=== PATIENT | male | born 1950 | race Caucasian/White ===

== ENCOUNTER 2018-12-14 09:15 | Outpatient (CLI) | payer BC ==
--- NOTE | 2018-12-14 16:23 | NM ---
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 TECHNIQUE: A DaTscan with axial tomographic images of the brain was obtained 3 hours following the intravenous a dministration of 4.5 mCi Iodine-123 Ioflupane. The patient was pretreated with 130 mg of potassium io dide orally 1 hour prior to the injection. FINDINGS: There is mild loss of tracer uptake in small areas of the posterior aspect of the striata on either s ban. IMPRESSION: Findings suggestive of Parkinsonian syndrome. POS: [facility]
== END 2018-12-14 09:16 | disposition home or self-care (01) ==
LOC: NM 09:15
PROVIDERS: ATTEND Psychiatry & Neurology Neurology
DX: G25.9 Extrapyramidal and movement disorder, unspecified (principal)
CPT/HCPCS: 78607; A9584